=== PATIENT | female | born 1960 | race Caucasian/White ===

== ENCOUNTER 2022-02-18 15:18 | Outpatient (REF) | payer OTHER, SELFPAY ==
[2022-02-18 16:33] LABS: Free T4 (Free Thyroxine) 0.95 ng/dL (0.71-1.85)
== END 2022-02-18 15:19 | disposition home or self-care (01) ==
LOC: HO.LAB 15:18
PROVIDERS: PCP Internal Medicine; Visit Provider Internal Medicine
DX: E04.2 Nontoxic multinodular goiter (principal)
CPT/HCPCS: 36415; 84439; 84443

== ENCOUNTER 2022-04-23 08:49 | Outpatient (REF) | payer BC, SELFPAY ==
--- NOTE | 2022-04-23 09:55 | P.BOP_ITS ---
Brief Operative Note Date of Service: 04/23/22 Pre-op diagnosis: Multinodular Thyroid Procedure: This is doctor Tiffany Danielson. This is an ultrasound-guided fine-needle aspiration report. Date of Examination: 04/23/2022 Indication: Multinodular Thyroid Porcedure: Procedure was explained to the patient. Alternatives, the risk and benefits were discussed. Written consent was obtained. A time-out was also obtained. After sterile preparation, fine-needle aspiration of a right upper pole 3.4 cm thyroid nodule was performed using direct ultrasound guidance to confirm accurate needle placement. Six aspirations were made using 27 gauge needles. An additional 2 aspirations were made using 25 guage needles. Samples were submitted for cytology. One pass was dedicated for [employer] sequencing pot maker testing. Our attention was then turned to the left mid pole. Fine-needle aspiration of a left mid pole 1.4 cm thyroid nodule was performed using direct ultrasound guidance to confirm accurate needle placement. Four aspirations were made using 27 gauge needles. Samples were submitted for cytology. One pass was dedicated for [employer] sequencing pot maker testing. The patient tolerated the procedure well. Aftercare instructions were provided. Impression: Uncomplicated fine needle aspiration biopsy of a right upper pole 3.4 cm thyroid nodule and a left mid pole 1.4 cm thyroid nodule under ultrasound guidance. Surgeon: Tiffany Danielson, DO Was an Director Clinical Information Services used for this Procedure?: No Estimated blood loss (mL): 0
[2022-04-23] MEDS: Lidocaine HCl 1 % 20 ML VIAL 5 ML SUBCUT (11:24)
== END 2022-04-23 08:50 | disposition home or self-care (01) ==
LOC: HO.US 08:49
PROVIDERS: Visit Provider Internal Medicine
DX: E04.2 Nontoxic multinodular goiter (principal)
CPT/HCPCS: 10005; 10006; 88172; 88173; 88177; 88305

== ENCOUNTER 2022-10-01 12:45 | Outpatient (AMB) | payer BC, SELFPAY ==
--- NOTE | 2022-10-01 12:45 | A.OFFVIS_ITS ---
Intake Intake Visit Reasons: Thyroid cancer post op surgery 08/11 Allergies No Known Allergies Allergy (Verified 10/01/22 13:06) Medication List - Last Reconciled 10/01/22 by Tiffany Danielson DO albuterol sulfate 90 mcg/actuation 90 mcg inhalation ONCE PRN carvedilol 3.125 mg PO BID levothyroxine 88 mcg PO DAILY loratadine (Claritin) 10 mg PO DAILY PRN sacubitril-valsartan 24-26 mg (Entresto) 1 tab PO BID HPI HPI Comments History of Present Illness Details 62 YO F with PMHx NTMNG who is seen in F/U for thyroid cancer. Was initially diagnosed with multinodular thyroid in 01/30/2022 with thyroid US revealing multiple bilateral nodules including a RMP 1.4 cm anechoic nodule, a RMP 2.8 cm mixed cystic nodule, and a LMP 1.4 cm solid nodule. Underwent FNA biopsy which revealed PTC. She then underwent a surgical total thyroidectomy 08/11/2022 which revealed a 1.2 cm focus of papillary thyroid cancer. There was no angioinvasion, no lymphatic invasion, no peruneural invasion and no ETE. 0/6 lymph nodes positive for mets. This was pT1bN0, low risk for recurrence. She was started postoperatively on levothyroxine 88 mcg PO daily. She is seen today in F/U. [facility] Medical History Multinodular thyroid Thyroid cancer Vitamin D deficiency Surgical History History of nose disorder Family History Father Lung cancer Mother Breast CA Social History Alcohol intake: current Alcohol intake frequency: a few times a month Alcohol type: beer and wine Patient Tobacco Use Status: Never used Tobacco Assessment & Plan Assessment & Plan (1) Thyroid cancer: Code(s): C73 - Malignant neoplasm of thyroid gland Plan: Patient with a new diagnosis of thyroid cancer. She then underwent a surgical total thyroidectomy 08/11/2022 which revealed a 1.2 cm focus of papillary thyroid cancer. There was no angioinvasion, no lymphatic invasion, no peruneural invasion and no ETE. 0/6 lymph nodes positive for mets. This was pT1bN0, low risk for recurrence. We reviewed options for next steps. We reviewed that I131 can be used to ablate any cancer cells that may be remaining, but typically this is not recommended for cancers that are low risk for recurrence. We did review that without I131 remnant ablation we will not have accurate tumor marker levels to monitor, and there is a chance that if some cancer cells are remaining these can grow and spread. She verbalizes understanding. She has opted to not pursue treatment with I131 remnant ablation at this time. Plan for now is to check TFTs as well as TG and TG antibody levels. We will target a goal TSH of 0.1-0.5 for the next 2 years. I will call with dose adjustments. She will then F/U in 6 months time for further TG monitoring. All of her questions were answered. She is in agreement with this plan of care. I spent 20 minutes in reviewing the record, seeing the patient and documenting in the medical record, including 5 minutes on the phone with the Patient. (2) Vitamin D deficiency: Code(s): E55.9 - Vitamin D deficiency, unspecified Plan: Will check Calcium, PTH and Vitamin D levels now. Orders: Orders Albumin Level Today E55.9 - Vitamin D deficiency, unspecified Calcium Today E55.9 - Vitamin D deficiency, unspecified Creatinine Today E55.9 - Vitamin D deficiency, unspecified Phosphorus Today E55.9 - Vitamin D deficiency, unspecified PTHI Today E55.9 - Vitamin D deficiency, unspecified Free T4 (Free Thyroxine) Today C73 - Malignant neoplasm of thyroid gland Thyroid Stimulating Hormone Today C73 - Malignant neoplasm of thyroid gland Vitamin D 25-OH Total Today E55.9 - Vitamin D deficiency, unspecified Thyroglobulin Tumor Marker Today C73 - Malignant neoplasm of thyroid gland Telehealth Telehealth Location of provider rendering services: practice address Location of patient: address on file Patient Identification confirmed using: Name, : Yes Telehealth method: voice only Patient verbally consented to treatment: Yes Patient verbally consented to billing insurance company: Yes Patient informed of any privacy concerns related to visit: Yes Coding Level of Care Code Tele Est Pt Level 3 (64343) Diagnoses Thyroid cancer C73 Vitamin D deficiency E55.9
== END 2022-10-01 14:09 | disposition home or self-care (01) ==
LOC: HO.ENCR 12:45
PROVIDERS: PCP Internal Medicine; Visit Provider Internal Medicine
DX: C73 Malignant neoplasm of thyroid gland (principal); E55.9 Vitamin D deficiency, unspecified
CPT/HCPCS: 99443

== ENCOUNTER → 2022-10-01 12:45 | Outpatient (BNVA) | payer BC, SELFPAY | PROVIDERS: PCP Internal Medicine; Visit Provider Internal Medicine ==

== ENCOUNTER 2022-10-02 14:49 | Outpatient (REF) | payer BC, SELFPAY ==
[2022-10-02 17:00] LABS: Albumin Level 4.6 g/dL (3.5-5.0); Calcium 10.4 mg/dL (8.4-10.2); Estimated Glomerular Filt Rate > 60; Phosphorus 3.4 mg/dL (2.7-4.5)
[2022-10-02 17:19] LABS: Free T4 (Free Thyroxine) 1.15 ng/dL (0.71-1.85); Thyroid Stimulating Hormone 0.61 uIU/mL (0.32-4.0)
[2022-10-05 15:24] LABS: Calcium (PTHI) 9.9 mg/dL (8.6-10.4); PTHI 49 pg/mL (16-77)
[2022-10-07 05:34] LABS: Thyroglobulin Antibody <1 IU/mL (<=1); Thyroglobulin Level 0.4 ng/mL
== END 2022-10-02 14:50 | disposition home or self-care (01) ==
LOC: HO.HMGCLDS 14:49
PROVIDERS: Internal Medicine; PCP Student in an Organized Health Care Education/Training Program; Visit Provider Family Medicine Adult Medicine
DX: E55.9 Vitamin D deficiency, unspecified (principal); C73 Malignant neoplasm of thyroid gland
CPT/HCPCS: 36415; 82040; 82306; 82310; 82565; 83970; 84100; 84432; 84439; 84443; 86800